=== PATIENT | female | born 1955 | race Caucasian/White ===

== ENCOUNTER → 2023-05-26 15:24 | Outpatient (REF) | payer BC, SELFPAY | LOC: HWWDC 15:24 | PROVIDERS: ATTENDING PHYSICIAN Obstetrics & Gynecology; FAMILY PHYSICIAN Family Medicine | DX: Z78.0 Asymptomatic menopausal state (principal); Z12.31 Encounter for screening mammogram for malignant neoplasm of breast | CPT/HCPCS: 77063; 77067; 77080 ==

== ENCOUNTER 2023-12-16 11:23 | Emergency (ER) | payer MEDICARE, SELFPAY ==
[2023-12-16 11:29] VITALS: BP 132/61
[2023-12-16 13:06] VITALS: BP 135/71; BMI 26.6
--- NOTE | 2023-12-16 13:42 | ED.SKININJ ---
HPI-Injury
General
Chief Complaint: Skin Problem
Source: patient
Exam Limitations: none
Time Seen by Provider: 12/16/23 13:21
History of Present Illness-Injury
Initial Injury comments:
68-year-old female otherwise healthy presents with persistent swelling to the anterior left knee that has been ongoing for about a month. Yesterday it swelled more and she scratched it and drained a large amount of clear and bloody fluid. She
notes the swelling is improved but is still draining. She denies significant pain or fever. She also complains of right shoulder pain has been going on for about a month. The pain in her shoulder is made worse with overhead activities. No other
complaints at this time
Past History
Past History
ED Past Medical History: None
ED Past Surgical History: Cholecystectomy
Social History
Tobacco: Non-smoker
Personal:
Living: with family
Employment: Employed
Family History
Family History: Other (Noncontributory)
Phy Exam
Physical Exam
Physical Exam:
General: Well-appearing female no acute respiratory distress
HEENT: Normocephalic atraumatic
Musculoskeletal exam: Left knee with prepatellar swelling. There is no intra-articular effusion. There is a small sinus noted over the anterior knee that drains a serous sanguinous fluid. No surrounding erythema. Motion of the knee is full.
Right shoulder examined and demonstrates increased pain with passive forward elevation. Strength of her shoulder is intact.
Skin: Surrounding skin around the left knee is without erythema. There is no induration.
Course
Orders/Labs/Results
Orders:
Orders
12/16/23 11:36
Knee, Left 4 or More Views [CR Knee - Left 4 Or More View*] Urgent
Comment:
Reason For Exam: swelling, pain
Shoulder, Right 2 Views [CR Shoulder - Right Min 2 View] Urgent
Comment:
Reason For Exam: pain, denies injury
Vital Signs
Initial and Last Documented VS:
Initial Vital Signs
Temp Pulse Resp BP Pulse Ox
98.2 F 82 18 132/61 99
12/16/23 11:29 12/16/23 11:29 12/16/23 11:29 12/16/23 11:29 12/16/23 11:29
Last Documented Vital Signs
Temp Pulse Resp BP Pulse Ox
98.5 F 82 20 135/71 99
12/16/23 13:06 12/16/23 13:06 12/16/23 13:06 12/16/23 13:06 12/16/23 13:06
MDM/Problems Addressed
Differential Diagnosis Includes:
Left knee swelling. Consider bursitis versus abscess. X-rays were examined demonstrates prepatellar swelling suggestive of prepatellar bursitis. Fluid coming from the sinus tract is clear. No obvious signs of cellulitic changes surrounding this.
She has good range of motion to the knee. Do not bursitis or septic arthritis. Patient quite concerned about potential for infection. Given the open area, will start on Keflex for prophylaxis. Right shoulder x-rays were reviewed and are
negative for acute bony abnormality. There may be some calcific tendinitis. Recommended anti-inflammatories for this. Recommend follow-up with orthopedics if further treatment is needed for the prepatellar bursa
*Critical Care Note
Total Time (30-74mins, 75-104mins- exclusive of procedures): Not Applicable
ED Attending Note
-
Portions of this chart may have been created with voice recognition software.� Occasional wrong word or��sound alike� substitutions may have occurred due to the inherent limitations of voice recognition software.
Discharge Plan
Departure
Patient Disposition: Home (Routine Discharge)
Date of Disposition: 12/16/23
Time of Disposition: 13:47
Patient with high blood pressure during this ER visit?: No
Discharge Problem:
Bursitis, prepatellar, left
Instructions: Bursitis ED
Prescriptions:
New
cephalexin 500 mg capsule
500 mg PO Q8H 7 Days Qty: 21 0RF
Referrals:
Tiago Rogers MD [Active] -
Activity Restrictions/Additional Instructions:
Continue with warm compresses to the left knee. Take antibiotics as directed. You may use anti-inflammatories if needed for pain for the shoulder. Follow-up EXTR further evaluation
Interventions
Interventions:
*Risk Screen - Suicide Last Done: 12/16/23 11:29
*General Assessment Last Done: 12/16/23 11:29
*Neglect/Abuse Screening Last Done: 12/16/23 11:29
ED- Fall Risk Assessment Last Done: 12/16/23 13:06
*ED COVID-19 Vaccine History Last Done: 12/16/23 13:06
ED-Skin Assessment Last Done: 12/16/23 13:06
Discharge Date and Time
Print Language: LITHUANIAN
== END 2023-12-16 14:08 | disposition home or self-care (01) ==
LOC: EMR 11:23
PROVIDERS: EMERGENCY PHYSICIAN Emergency Medicine; FAMILY PHYSICIAN Family Medicine
DX: M70.42 Prepatellar bursitis, left knee (principal); Z90.49 Acquired absence of other specified parts of digestive tract
CPT/HCPCS: 99283; 73030; 73564

== ENCOUNTER 2024-04-13 10:40 | Emergency (ER) | payer MEDICARE, SELFPAY ==
[2024-04-13 10:52] VITALS: BP 130/78
[2024-04-13 11:19] VITALS: BP 117/68
[2024-04-13 12:00] VITALS: BP 128/65
[2024-04-13 12:02] VITALS: BP 128/65
--- NOTE | 2024-04-13 12:36 | ED.GENMED ---
History of Present Illness
General
Chief Complaint: Skin Problem
Source: patient
Exam Limitations: none
Time Seen by Provider: 04/13/24 12:07
Nursing documentation reviewed up to this point in time: agreed with
History of Present Illness
History of Present Illness:
69-year-old female history of bursitis, flared up recently in her left prepatellar space, she drained it with a needle at home states she 'sterilized' with heat and alcohol, got some bloody pus out and then developed redness and swelling down to her
anterior velez no nausea vomit fever chills she is concerned because she is scheduled to have a hip replacement in a few weeks
Past History
Past History
ED Past Medical History: None
ED Past Surgical History: Cholecystectomy
Social History
Tobacco: Non-smoker
Alcohol: None
Drug: None
Personal:
Living: with family
Employment: Employed
Family History
Family History: Other (Noncontributory)
Review of Systems
Review of Systems
All Other Systems: Not applicable
Constitutional: Denies fever
EENT: Reports no symptoms
Respiratory: Reports no symptoms
Musculoskeletal: Reports edema
Skin: Reports other (Drainage from prepatellar space, swelling much improved from yesterday)
Phy Exam
Physical Exam
Physical Exam:
Physical Exam
General: no apparent distress, not acutely ill
Neck: No jaundice
Heart: s1/s2 regular rate and rhythm, no murmur. equal radial pulses.
Lungs: no acute respiratory distress. clear bilaterally
Neuro: alert and oriented. no focal neurological deficits
Skin: Warm and dry
Psychiatric: well kept. interactive and cooperative
Extremities: Left lower extremity mild swelling minimal tenderness of the left prepatellar space, some bloody drainage does have cellulitis to the anterior velez
Course
Orders/Labs/Results
Orders:
Orders
04/13/24 10:44
CR Knee - Left 4 Or More View* Urgent
Comment:
Reason For Exam: pain, swelling, pt drained fluid from knee yesterd
04/13/24 12:32
CeFAZolin 2 GRAM [Ancef] 2 grams in 10 ml IV NOW
Vital Signs
Initial and Last Documented VS:
Initial Vital Signs
Temp Pulse Resp BP Pulse Ox
98.4 F 76 16 130/78 99
04/13/24 10:52 04/13/24 10:52 04/13/24 10:52 04/13/24 10:52 04/13/24 10:52
Last Documented Vital Signs
Temp Pulse Resp BP Pulse Ox
98.4 F 66 18 128/65 97
04/13/24 10:52 04/13/24 12:02 04/13/24 12:02 04/13/24 12:02 04/13/24 11:46
MDM/Problems Addressed
Differential Diagnosis Includes:
Cellulitis prepatellar bursitis iatrogenic
MDM/Problems Addressed:
Likely cellulitis bursitis
*Critical Care Note
Total Time (30-74mins, 75-104mins- exclusive of procedures): Not Applicable
Update Note
Update Note:
Patient nontoxic afebrile will start on some antibiotics ER or PCP if worsening symptom
ED Attending Note
-
Portions of this chart may have been created with voice recognition software.� Occasional wrong word or��sound alike� substitutions may have occurred due to the inherent limitations of voice recognition software.
Discharge Plan
Departure
Patient Disposition: Home (Routine Discharge)
Date of Disposition: 04/13/24
Time of Disposition: 12:39
Patient with high blood pressure during this ER visit?: No
Condition: Good
Discharge Problem:
Bursitis, Cellulitis
Instructions: Cellulitis (Skin Infection), Adult (DC)
Prescriptions:
New
doxycycline hyclate 100 mg capsule
100 mg PO BID 10 Days Qty: 20 0RF
cephalexin 500 mg capsule
500 mg PO Q6H 10 Days Qty: 40 0RF
No Action
cephalexin 500 mg capsule
500 mg PO Q8H 7 Days Qty: 21 0RF
Referrals:
Garth Mcdonald MD [Family Provider] - Next open appointment
Activity Restrictions/Additional Instructions:
Keep wound covered, wash with soap and water use antibiotic ointment, oral antibiotics as prescribed return to the ER if worsening symptoms
Interventions
Interventions:
*Risk Screen - Suicide Last Done: 04/13/24 10:52
*General Assessment Last Done: 04/13/24 10:52
*Neglect/Abuse Screening Last Done: 04/13/24 10:52
ED- Fall Risk Assessment Last Done: 04/13/24 12:00
*ED COVID-19 Vaccine History Last Done: 04/13/24 10:52
ED-Skin Assessment Last Done: 04/13/24 12:00
Discharge Date and Time
Print Language: SWEDISH
[2024-04-13 13:00] VITALS: BP 137/79
[2024-04-13] MEDS: ANCEF 10 IV (13:04)
== END 2024-04-13 13:20 | disposition home or self-care (01) ==
LOC: EMR 10:40
PROVIDERS: EMERGENCY PHYSICIAN Emergency Medicine; FAMILY PHYSICIAN Internal Medicine
DX: M70.42 Prepatellar bursitis, left knee (principal); L03.116 Cellulitis of left lower limb; Z90.49 Acquired absence of other specified parts of digestive tract
CPT/HCPCS: 96374; 99284; 73564